=== PATIENT | female | born 1965 | race African-American/Black ===

== ENCOUNTER 2020-09-16 10:53 | Emergency (ER) | payer MEDICARE, MEDICAID ==
--- NOTE | 2020-09-16 13:48 | ER Document Report ---
ED GI/ - General Chief Complaint: Vaginal Discharge Stated Complaint: VAGINAL DISCHARGE Mode of Arrival: Ambulatory Information source: Patient Notes: 09/16/20 12:34 - ED Nursing Note by KINSEY LR Accmanpreet Num: [id number] : 1965 Patient Age: 54 Pt presented to the ED with c/o vaginal discharge x1 week. Pt denies n/v fever or chills. C Hermann RN MY NOTES 54-year-old black female arrives by train from [place] on Thanksgiving to [facility] with family. She had sex with a new sex partner around this time and began to have yellow vaginal discharge that is been continous and very copious and malodorous. She denies any prior history of similar symptoms. She is to return to [place] in around 1 month. COVID-19 is very heavy at this time. She denies any coronavirus positivity or any exposure to same. Patient denies any sores painful or otherwise. She denies any skin lesions of any kind. She denies any history of syphilis or HIV. She denies any diarrhea or dysuria. She denies any trauma or follow-up with sexual abuse. TRAVEL OUTSIDE OF THE [place] IN LAST 30 DAYS: No - HPI Patient complains to provider of: Pelvic pain, Vaginal discharge. No: Abdominal pain, Diarrhea, Dysuria, Feeding tube problem, Flank pain, Mariano catheter problem, Hematuria, Missed/Late menses, , Urinary retention, Vaginal bleeding, Vaginal pain, Vomiting Onset: Other - X1 month Timing/Duration: Sudden, Persistent, Worse Quality of pain: Cramping. denies: Achy, Burning Severity at maximum: Mild Severity in ED: Mild Pain Level: 1 Location: Vaginal. No: Chest pain, Epigastric, LUQ, LLQ, RUQ, RLQ, Left flank, Right flank, Low back, Suprapubic Vaginal bleeding (Compared to normal period): None Sexual history: Active, Unprotected intercourse - Related Data Allergies/Adverse Reactions: No Known Allergies Allergy (Unverified 09/16/20 13:06) Past Medical History - General Information source: Patient - Social History Smoking Status: Current Every Day Smoker Cigarette use (# per day): Yes Chew tobacco use (# tins/day): No Smoking Education Provided: Yes Frequency of alcohol use: None Drug Abuse: None Lives with: Friend Family History: Reviewed & Not Pertinent Patient has suicidal ideation: No Patient has homicidal ideation: No Past Surgical History: Reports: Hx Breast Surgery - Lt. MAstectomy Review of Systems - Review of Systems Constitutional: No symptoms reported. denies: Fever, Weight gain, Weight loss, Recent illness EENT: No symptoms reported Cardiovascular: No symptoms reported Respiratory: No symptoms reported Gastrointestinal: No symptoms reported Genitourinary: See HPI, Discharge. denies: Burning, Dysuria, Frequency, Flank pain, Hematuria, Incontinence, Pain, Urgency, Retention Female Genitourinary: No symptoms reported Musculoskeletal: No symptoms reported Skin: No symptoms reported Hematologic/Lymphatic: No symptoms reported Neurological/Psychological: No symptoms reported -: Yes All other systems reviewed and negative Physical Exam - Vital signs Vitals: Temp Pulse Resp BP Pulse Ox 98.1 F 86 16 145/96 H 98 09/16/20 10:55 09/16/20 10:55 09/16/20 10:55 09/16/20 10:55 09/16/20 10:55 Interpretation: Normal - General General appearance: Appears well, Alert - HEENT Head: Normocephalic, Atraumatic Eyes: Normal Pupils: PERRL - Respiratory Respiratory status: No respiratory distress Chest status: Nontender Breath sounds: Normal Chest palpation: Normal - Cardiovascular Rhythm: Regular Heart sounds: Normal auscultation Murmur: No - Abdominal Inspection: Normal Distension: No distension Bowel sounds: Normal Tenderness: Nontender Organomegaly: No organomegaly - Rectal Tenderness: No - Genitourinary External exam: Normal Speculum exam: Vaginal discharge - Vaginal discharge is foamy and green-yellow in color. Very copious in the posterior vault. There is mild cervical tenderness on palpation no obvious cervical lesions that are noted at this time. I used a plastic sterile speculum with sterile conditions. Light was adequate by a built-in light sys Vaginal bleeding: None - I was assisted in the speculum exam with automotive drivability technician Lurdes @[address] exam: Normal - Back Back: Normal, Nontender - Extremities General upper extremity: Normal inspection, Nontender, Normal color, Normal ROM, Normal temperature General lower extremity: Normal inspection, Nontender, Normal color, Normal ROM, Normal temperature, Normal weight bearing. No: Kaur's sign - Neurological Neuro grossly intact: Yes Cognition: Normal Orientation: AAOx4 Alexandre Coma Scale Eye Opening: Spontaneous Sherwood Coma Scale Verbal: Oriented Sherwood Coma Scale Motor: Obeys Commands Alexandre Coma Scale Total: 15 Speech: Normal Motor strength normal: LUE, RUE, LLE, RLE Sensory: Normal - Psychological Associated symptoms: Normal affect, Normal mood - Skin Skin Temperature: Warm Skin Moisture: Dry Skin Color: Normal Course - Vital Signs Vital signs: Temp Pulse Resp BP Pulse Ox 98.1 F 86 15 131/84 H 99 09/16/20 10:55 09/16/20 10:55 09/16/20 15:01 09/16/20 15:01 09/16/20 15:01 - Laboratory Results Laboratory Results Interpreted: 09/16/20 12:45 Ur Leukocyte Esterase MODERATE H Urine Ascorbic Acid 40 H Critical Laboratory Results Reviewed: Yes Attending or Supervising Physician who Reviewed Labs: JUSTUS CROOKS JR - Radiology Results Critical Radiology Results Reviewed: No Critical Results Attending or Supervising Physician who Reviewed Radiology: JUSTUS CROOKS JR Critical Care Note - Critical Care Note Comments: I advised patient of her trichomonas positive wet prep and vaginitis and advise she has to take Flagyl. She advised me she does not drink alcohol; I advised her not to use any vinegar or any perfume Discharge - Discharge Clinical Impression: STD (female), Vaginal discharge, Trichomonal leukorrhea vaginalis Hypertension Qualifiers: Hypertension type: unspecified Qualified Code(s): I10 - Essential (primary) hypertension Condition: Stable Disposition: HOME, SELF-CARE Additional Instructions: Follow-up with personal doctor and with health department and return to ER as needed take medications as directed bar. Avoid sex until all partners are treated. Encourage condoms or other STD protective spermicidal or similar creams. Please get rechecked for HIV and syphilis in 1 month. May take Diflucan for vaginal yeast after antibiotics. Prescriptions: Fluconazole [Diflucan] 150 mg PO DAILY #1 tablet Doxycycline Monohydrate 100 mg PO BID #14 capsule Metronidazole [Flagyl 500 mg Tablet] 500 mg PO BID #14 tablet
[2020-09-16] MEDS ORDERED: CEFTRIAXONE INJ 1000 MG VIAL IV ONE (14:23)
[2020-09-16] MEDS ORDERED: AZITHROMYCIN 250 MG TABLET PO ONE ×2 (14:24→17:15)
[2020-09-16 15:16] LABS: T.VAGINALIS (WET MOUNT) TRICHOMONAS SEEN; YEAST (WET MOUNT) NO YEAST SEEN
[2020-09-16 15:17] LABS: BACTERIA (WET MOUNT) 4+ BACTERIA SEEN; EPITHELIALS (WET MOUNT) 3+ EPITHELIALS SEEN; RBCS (WET MOUNT) NO RBCS SEEN; WBCS (WET MOUNT) 2+ WBCS SEEN
[2020-09-16] MEDS ORDERED: METRONIDAZOLE 500 MG TABLET PO ONE (15:43)
[2020-09-16 15:44] LABS: APPEARANCE,URINE TURBID; BILIRUBIN,URINE NEGATIVE (NEGATIVE); COLOR,URINE YELLOW; GLUCOSE, URINE NEGATIVE (NEGATIVE); KETONES,URINE NEGATIVE (NEGATIVE); LEUKOCYTE ESTERASE,URINE MODERATE (NEGATIVE); NITRITE,URINE NEGATIVE (NEGATIVE); PROTEIN,URINE NEGATIVE (NEGATIVE); URINE SPECIFIC GRAVITY 1.026; UROBILINOGEN,URINE NEGATIVE mg/dL (<2.0)
[2020-09-16] MEDS ORDERED: AZITHROMYCIN 250 MG TABLET ONE (16:35)
[2020-09-16 16:46] LABS: CHLAM PCR NOT DETECTED (NOT DETECT)
[2020-09-16 16:52] VITALS: BP 131/84
== END 2020-09-16 16:51 | disposition home or self-care (01) ==
LOC: ER 10:53
DX: A59.01 Trichomonal vulvovaginitis (principal); N89.8 Other specified noninflammatory disorders of vagina; R10.2 Pelvic and perineal pain; I10 Essential (primary) hypertension; F17.210 Nicotine dependence, cigarettes, uncomplicated
CPT/HCPCS: 99284; 96374; 36415; 87086; 87210; 87088; 86592; 81001; 86701; 87491; 87591; A9270 ×2; J0696; 87186